=== PATIENT | male | born 1945 | race Caucasian/White ===

== ENCOUNTER 2017-06-06 15:13 | Emergency (ER) | payer OTHER, MEDICARE ==
[~2017-06-06] VITALS: Ht 172.7 cm; Wt 90.0 kg
[~2017-06-06 15:13] MED LIST: ALLO300T2 PO; ASPI-110 PO; BUPR150T12 PO; CHOL100025 CHEW; CLON.5 PO; DIGO0.25 PO; DILT120T PO; GLIP5TAB8 PO; LEXA10TA PO; LEXA20TA PO; LISI10TA PO; MAGN1TAB14 PO; NASA0.653; OMEP20TA PO; SIMV10TA PO; SYMB160A INH; TAMS5CAP PO; WARF4TAB51 PO; ZINC CHELATED PO; ZYRT10CA PO
[2017-06-06 15:15] VITALS: BP 173/83; PULSE 84; RESP 18; TEMP 99.1; O2SAT 96
--- NOTE | 2017-06-06 15:36 | PD ---
Physical Exam Time Seen by Provider: 15:35 Narrative 71 y/o male [facility]. He is having a "panic attack." -SI/HI Vital signs reviewed. Seen at triage desk. Awaiting bed placement. Data Data Last Documented VS Vital Signs Date Time Temp Pulse Resp B/P Pulse Ox O2 Delivery O2 Flow Rate FiO2 06/06/17 15:15 99.1 84 18 173/83 96 Room Air [facility] Medical Record Reviewed: Yes Supervised Visit with WIN: Damir Garduno Jun 06, 2017 15:36
[2017-06-06] MEDS ORDERED: SALI0.653 EACH NARE (17:40)
[2017-06-06] MEDS ORDERED: METF500T PO (17:40)
[2017-06-06] MEDS ORDERED: CETI10 PO (17:40)
[2017-06-06] MEDS ORDERED: QUET1TAB7 PO (17:40)
[2017-06-06] MEDS ORDERED: APIX5TAB PO (17:40)
[2017-06-06] MEDS ORDERED: CART120C PO (17:40)
[2017-06-06 17:42] VITALS: BP 167/90; PULSE 84; RESP 19; TEMP 98.1; O2SAT 95
[2017-06-06] MEDS ORDERED: HYDR-3133 PO (17:46)
--- NOTE | 2017-06-06 17:46 | PD ---
HPI Chief Complaint: Psychiatric Symptoms Time Seen by Provider: 17:25 Travel History International Travel<30 days: No Contact w/Intl Traveler<30days: No Traveled to known affect area: No History of Present Illness HPI 71-year-old male arrives to the ER 2 weeks after his Klonopin prescription was discontinued per a new [place] protocol. He reports some insomnia. He does not want to resume the Klonopin. He has no suicidal or homicidal ideation. He reports he can visit a psychiatric care [place] office tomorrow. He reports a history of PTSD more than 40 years old. No medical complaint otherwise. Location psychiatric. Timing constant. Severity mild to moderate. He has seen 3 psychiatrists in the last 6 months and his medications have been changed 3 times. PFSH Past Medical History Hx Anticoagulant Therapy: Yes Asthma: Yes Atrial Fibrillation: Yes Blood Disorders: No Anxiety: Yes Depression: Yes Heart Rhythm Problems: Yes Cancer: Yes (HX OF PROSTATE CANCER) Cardiac Catheterization: Yes Cardiovascular Problems: Yes High Cholesterol: Yes Chemotherapy: Yes Chest Pain: Yes Congestive Heart Failure: Yes COPD: Yes Coronary Artery Disease: Yes Diabetes: Yes Patient Takes Glucophage: Yes Diminished Hearing: No Endocrine: No GERD: Yes Genitourinary: Yes (HX OF KIDNEY DISEASE) Hypertension: Yes Immune Disorder: No Inguinal Hernia: Yes (REPAIR BILATERAL) Neurologic: Yes (neuropathy LEFT ARM IDIOPATHIC PER PT) Reproductive: No Respiratory: Yes Immunizations Current: Yes Myocardial Infarction: Yes Pneumonia: Yes ( X 1) Radiation Therapy: Yes (2004) Renal Failure: Yes (RENAL INSUFF) Sickle Cell Disease: No Sleep Apnea: Yes (USES A CPAP) Tetanus Vaccination: Unknown Past Surgical History Abdominal Surgery: Yes AICD: No Arteriovenous Shunt: No Cardiac Surgery: Yes Cholecystectomy: Yes Coronary Artery Bypass Graft: Yes (X 3) Coronary Stent: Yes ( X 5) Insulin Pump: No Joint Replacement: No Pacemaker: Yes Social History Alcohol Use: No Tobacco Use: No Substance Use: No Allergies-Medications (Allergen,Severity, Reaction): Coded Allergies: Prevacid (Verified Allergy, Mild, NAUSEA, 06/06/17) Prozac (Verified Allergy, Mild, 06/06/17) Reported Meds & Prescriptions Reported Meds & Active Scripts Active Lexapro (Escitalopram Oxalate) 20 Mg Tab 20 Mg PO DAILY Klonopin (Clonazepam) 0.5 Mg Tab 0.5 Mg PO BID Bupropion Sr 12 HR (Bupropion ER 12 HR (Smoking Deterrent)) 150 Mg Tab 150 Mg PO BID Take 1 tablet daily x 3 days then twice daily thereafter. Vitamin D3 (Cholecalciferol) 1,000 Unit Chew 1,000 Units CHEW DAILY Symbicort Inh (Budesonide/Formoterol Fumarate) 160-4.5 Mcg/Act Aero 2 Puff INH Q12HR Omeprazole 20 Mg Tab 20 Mg PO DAILY Magnesium 400 Mg Tab 400 Mg PO DAILY 30 Days Lisinopril-Hctz 10-12.5 Mg Tab 1 Tab PO DAILY Glipizide 5 Mg Tab 5 Mg PO 1/2 TAB DAILY Take 30 minutes before a meal Flomax (Tamsulosin HCl) 0.4 Mg Cap 0.4 Mg PO HS Diltiazem (Diltiazem HCl) 120 Mg Tab 120 Mg PO DAILY Digoxin 0.25 Mg Tab 0.25 Mg PO DAILY Aspirin 81 (Aspirin) 81 Mg Tabdr 81 Mg PO DAILY Allopurinol 300 Mg Tab 300 Mg PO DAILY Reported [Zinc Chelated ] 15 Mg PO DAILY@1600 Review of Systems Except as stated in HPI: all other systems reviewed are Neg Psychiatric: Positive: Anxiety, Depression, No: Suicidal Ideations, Substance Abuse, Homicidal Ideation Physical Exam Narrative GENERAL: 71 yo male, pleasant, [place] SKIN: Warm and dry. HEAD: Atraumatic. Normocephalic. EYES: Pupils equal and round. No scleral icterus. No injection or drainage. ENT: No nasal bleeding or discharge. Mucous membranes pink and moist. NECK: Trachea midline. No JVD. CARDIOVASCULAR: Regular rate and rhythm. RESPIRATORY: No accessory muscle use. Clear to auscultation. Breath sounds equal bilaterally. GASTROINTESTINAL: Abdomen soft, non-tender, nondistended. Hepatic and splenic margins not palpable. MUSCULOSKELETAL: Extremities without clubbing, cyanosis, or edema. No obvious deformities. NEUROLOGICAL: Awake and alert. No obvious cranial nerve deficits. Motor grossly within normal limits. Five out of 5 muscle strength in the arms and legs. Normal speech. PSYCHIATRIC: No HI/SI. No apparent response to internal stimuli. Data Data Last Documented VS Vital Signs Date Time Temp Pulse Resp B/P Pulse Ox O2 Delivery O2 Flow Rate FiO2 06/06/17 17:25 20 06/06/17 15:15 99.1 84 173/83 96 Room Air MDM Medical Decision Making Medical Screen Exam Complete: Yes Emergency Medical Condition: Yes Medical Record Reviewed: Yes Differential Diagnosis Benzodiazepine withdrawal, generalized anxiety disorder, insomnia, panic attacks , major depression, PTSD Narrative Course Pt has good follow up, [place] psych facility tomorrow. He is willing to try non-benzodiazepine anxiolytic. We'll defer initiation of an SSRI/SNRI etc to psychiatrist which pt can see tomorrow. Hydroxyzine script. Diagnosis Primary Impression: Anxiety Referrals: [facility] Additional Instructions: You have a choice when it comes to health care, and we are glad that you chose [facility]. Hopefully, we have met your expectations on today's visit. You are welcome to return to [facility] at any time, as we are committed to meeting the health care needs of our community. Med/Other Pt SpecificInfo: Prescription(s) given Scripts Hydroxyzine HCl 25 Mg Tab25 Mg PO TID PRN (ANXIETY) #20 TAB Ref 0 Prov:David Guzman MD 06/06/17 Disposition: 01 DISCHARGE HOME Condition: Stable David Guzman MD Jun 06, 2017 17:46
== END 2017-06-06 18:06 | disposition home or self-care (01) ==
LOC: NEPD 15:13
DX: F41.9 Anxiety disorder, unspecified (principal); G47.00 Insomnia, unspecified; I10 Essential (primary) hypertension; E11.9 Type 2 diabetes mellitus without complications; E78.00 Pure hypercholesterolemia, unspecified; N28.9 Disorder of kidney and ureter, unspecified; I25.2 Old myocardial infarction; Z79.84 Long term (current) use of oral hypoglycemic drugs; Z79.01 Long term (current) use of anticoagulants; Z87.09 Personal history of other diseases of the respiratory system; Z86.59 Personal history of other mental and behavioral disorders; Z86.79 Personal history of other diseases of the circulatory system; Z87.19 Personal history of other diseases of the digestive system; Z87.448 Personal history of other diseases of urinary system; Z86.69 Personal history of other diseases of the nervous system and sense organs
CPT/HCPCS: 99283

== ENCOUNTER 2018-01-30 23:06 | Inpatient (IN) | payer OTHER, MEDICARE ==
[~2018-01-30] VITALS: Ht 172.7 cm; Wt 90.9 kg
[~2018-01-30 23:06] MED LIST changes: +APIX5TAB PO; -ASPI-110 PO; +ASPI1TAB57 PO; +CART120C PO; +CETI10 PO; -CLON.5 PO; -DIGO0.25 PO; -DILT120T PO; -GLIP5TAB8 PO; +HYDR-3133 PO; -LEXA10TA PO; -LISI10TA PO; -MAGN1TAB14 PO; +MAGN400T3 PO; +METF500T PO; -NASA0.653; -OMEP20TA PO; +QUET1TAB7 PO; +SALI0.653 EACH NARE; -SIMV10TA PO; -TAMS5CAP PO; -WARF4TAB51 PO; -ZYRT10CA PO
[2018-01-30] MEDS ORDERED: SODIUM CHLOR 0.9% 1000 ML INJ 1,000 ML IV ONE (23:09)
--- NOTE | 2018-01-30 23:18 | PD ---
HPI Chief Complaint: Neuro symptoms Time Seen by Provider: 23:09 Travel History International Travel<30 days: No Contact w/Intl Traveler<30days: No Traveled to known affect area: No History of Present Illness HPI 72-year-old male was brought by EMS for neuro symptoms. Patient's states that patient was going to the sink and had a near syncopal episode. Patient's states that she helped him down to the floor. Patient had his eye open and was talking to her. Patient's reported no complete loss of consciousness. EMS was called. Patient became a phasic when EMS arrived. Patient also was noticed to have right-sided facial drooping and right-sided weakness when EMS arrived. Patient was brought in for evaluation. Patient has history of atrial fibrillation and on Eliquis. Patient has history hypertension , diabetes, hyperlipidemia. Patient denies any previous history of TIA or CVA. Patient states that he has been feeling dizzy and unsteady for the past 3-4 days. Patient states that he fell 3 days ago in the shower and again in the garage 2 days ago. Patient denies any injury from the fall. Patient take aspirin 81 mg daily including today. Patient stated he took his Eliquis today also. Patient also has history of prostate cancer. Patient has history of CAD status post CABG and stent placement. Patient has history of renal insufficiency. Patient had pacemaker placement. PFSH Past Medical History Hx Anticoagulant Therapy: Yes Asthma: Yes Atrial Fibrillation: Yes Blood Disorders: No Anxiety: Yes Depression: Yes Heart Rhythm Problems: Yes Cancer: Yes (HX OF PROSTATE CANCER) Cardiac Catheterization: Yes Cardiovascular Problems: Yes High Cholesterol: Yes Chemotherapy: Yes Chest Pain: Yes Congestive Heart Failure: Yes COPD: Yes Coronary Artery Disease: Yes Diabetes: Yes Diminished Hearing: No Endocrine: No GERD: Yes Genitourinary: Yes (HX OF KIDNEY DISEASE) Hypertension: Yes Immune Disorder: No Inguinal Hernia: Yes (REPAIR BILATERAL) Neurologic: Yes (neuropathy LEFT ARM IDIOPATHIC PER PT) Reproductive: No Respiratory: Yes Immunizations Current: Yes Myocardial Infarction: Yes Pneumonia: Yes ( X 1) Radiation Therapy: Yes (2004) Renal Failure: Yes (RENAL INSUFF) Sickle Cell Disease: No Sleep Apnea: Yes (USES A CPAP) Past Surgical History Abdominal Surgery: Yes AICD: No Arteriovenous Shunt: No Cardiac Surgery: Yes Cholecystectomy: Yes Coronary Artery Bypass Graft: Yes (X 3) Coronary Stent: Yes ( X 5) Insulin Pump: No Joint Replacement: No Pacemaker: Yes Social History Alcohol Use: No Tobacco Use: No Substance Use: No Allergies-Medications (Allergen,Severity, Reaction): Coded Allergies: fluoxetine (Unverified Allergy, Mild, 06/25/17) lansoprazole (Unverified Allergy, Mild, NAUSEA, 06/25/17) Reported Meds & Prescriptions Reported Meds & Active Scripts Active Hydroxyzine HCl 25 Mg Tab 25 Mg PO TID PRN Lexapro (Escitalopram Oxalate) 20 Mg Tab 20 Mg PO DAILY Bupropion Sr 12 HR (Bupropion ER 12 HR (Smoking Deterrent)) 150 Mg Tab 150 Mg PO BID Take 1 tablet daily x 3 days then twice daily thereafter. Vitamin D3 (Cholecalciferol) 1,000 Unit Chew 1,000 Units CHEW DAILY Symbicort Inh (Budesonide/Formoterol Fumarate) 160-4.5 Mcg/Act Aero 2 Puff INH Q12HR Magnesium 400 Mg Tab 400 Mg PO DAILY 30 Days Aspirin 81 (Aspirin) 81 Mg Tabdr 81 Mg PO DAILY Allopurinol 300 Mg Tab 300 Mg PO DAILY Reported Atorvastatin (Atorvastatin Calcium) 20 Mg Tab 20 Mg PO HS Clonazepam 0.5 Mg Tab 0.25 Mg PO HS Irbesartan 150 Mg Tab 150 Mg PO DAILY Chlorthalidone 25 Mg Tab 25 Mg PO DAILY Eliquis (Apixaban) 5 Mg Tab 5 Mg PO BID Quetiapine (Quetiapine Fumarate) 25 Mg Tab 25 Mg PO HS Metformin (Metformin HCl) 500 Mg Tab 1,500 Mg PO BIDPC With meals Saline Nasal Thompsons (Sodium Chloride) 0.65% Thompsons 2 Thompsons EACH NARE DIRECTED PRN Cartia Xt (Diltiazem ER 24 HR) 120 Mg Caper 240 Mg PO DAILY [Zinc Chelated ] 15 Mg PO DAILY@1600 Review of Systems General / Constitutional: No: Fever Eyes: No: Visual changes HENT: No: Headaches Cardiovascular: No: Chest Pain or Discomfort Respiratory: No: Shortness of Breath Gastrointestinal: No: Abdominal Pain Genitourinary: No: Dysuria Musculoskeletal: No: Pain Skin: No Rash Neurologic: Positive: Weakness, Slurred Speech Psychiatric: No: Depression Endocrine: No: Polydipsia Hematologic/Lymphatic: No: Easy Bruising Physical Exam Narrative GENERAL: Well-nourished, well-developed patient. SKIN: Focused skin assessment warm/dry. HEAD: Normocephalic. EYES: No scleral icterus. No injection or drainage. NECK: Supple, trachea midline. No JVD or lymphadenopathy. CARDIOVASCULAR: Regular rate and rhythm without murmurs, gallops, or rubs. RESPIRATORY: Breath sounds equal bilaterally. No accessory muscle use. GASTROINTESTINAL: Abdomen soft, non-tender, nondistended. MUSCULOSKELETAL: No cyanosis, or edema. BACK: Nontender without obvious deformity. No CVA tenderness. Neurologic exam: Patient open eyes on command. Upon arrival patient was aphasic however patient started talking a few minutes after arrival. Patient has some mild drooping on the right side of face. Patient has mild weakness on the right arm. Patient unable to lift bilateral lower extremity off the bed. Deep tendon reflexes +1 and equal. Negative Babinski. Visual field intact. Data Data Last Documented VS Vital Signs Date Time Temp Pulse Resp B/P (MAP) Pulse Ox O2 Delivery O2 Flow Rate FiO2 01/31/18 00:14 99 Nasal Cannula 2.00 Orders Orders Cath For Specimen (01/30/18 23:09) Neuro Checks Q2HX12,Q4H (01/30/18 23:09) Nursing Bedside Swallow Assess .ONCE (01/30/18 23:09) Activity Bed Rest (01/30/18 23:09) Diet Npo (01/31/18 Breakfast) Prothrombin Time / Inr (Pt) (01/30/18 23:09) Act Partial Throm Time (Ptt) (01/30/18 23:09) Complete Blood Count With Diff (01/30/18 23:09) Basic Metabolic Panel (Bmp) (01/30/18 23:09) Fibrinogen (01/30/18 23:09) Creatine Kinase (Cpk) (01/30/18 23:09) Troponin I (01/30/18 23:09) Ua Includes Microscopic (01/30/18 23:09) Type And Screen (01/30/18 23:09) Ct Brain W/O Iv Contrast(Rout) (01/30/18 ) Cta Brain W Iv Contrast W 3d (01/30/18 23:09) Cta Neck W Iv Contrast W 3d (01/30/18 23:09) Chest, Single Ap (01/30/18 ) Electrocardiogram (3/22/18 ) Consult Neurology (01/30/18 23:09) Sodium Chlor 0.9% 1000 Ml Inj (Ns 1000 M (01/30/18 23:09) Blood Glucose (01/30/18 23:09) Ecg Monitoring (01/30/18 23:09) Iv Access Insert/Monitor (01/30/18 23:09) NPO (01/30/18 23:09) Oximetry (01/30/18 23:09) Resp Oxygen Nc Stroke (01/30/18 ) Sodium Chlor 0.9% 250 Ml Inj (Ns 250 Ml (01/31/18 00:00) Sodium Chlor 0.9% 1000 Ml Inj (Ns 1000 M (01/31/18 00:00) [place] (01/30/18 23:52) Iohexol 350 Inj (Omnipaque 350 Inj) (01/30/18 23:45) (Hub Use Only)Inp Phy Cons/Ref (01/31/18 ) Mri Brain W/O Contrast (01/31/18 00:28) Mri C Spine W/O Contrast (01/31/18 00:28) Mri T Spine W/O Contrast (01/31/18 00:28) Mri L Spine W/O Contrast (01/31/18 00:28) Labs Laboratory Tests Test 01/31/18 00:03 White Blood Count 10.7 TH/MM3 Red Blood Count 5.13 MIL/MM3 Hemoglobin 14.5 GM/DL Hematocrit 42.8 % Mean Corpuscular Volume 83.6 FL Mean Corpuscular Hemoglobin 28.3 PG Mean Corpuscular Hemoglobin Concent 33.8 % Red Cell Distribution Width 13.1 % Platelet Count 358 TH/MM3 Mean Platelet Volume 8.1 FL Neutrophils (%) (Auto) 71.3 % Lymphocytes (%) (Auto) 14.4 % Monocytes (%) (Auto) 10.5 % Eosinophils (%) (Auto) 2.6 % Basophils (%) (Auto) 1.2 % Neutrophils # (Auto) 7.7 TH/MM3 Lymphocytes # (Auto) 1.5 TH/MM3 Monocytes # (Auto) 1.1 TH/MM3 Eosinophils # (Auto) 0.3 TH/MM3 Basophils # (Auto) 0.1 TH/MM3 CBC Comment DIFF FINAL Differential Comment MDM Medical Decision Making Medical Screen Exam Complete: Yes Emergency Medical Condition: Yes Interpretation(s) Last Impressions Neck CTA 01/30/18 2309 Signed Impressions: Service Date/Time: January 23:11 - CONCLUSION: 1. Moderate calcific plaquing in the left carotid bulb with approximately 50%% diameter stenosis. 2. Minimal calcific plaquing in the right carotid bulb with less than 20%% diameter stenosis. Nima Loomis MD Head CTA 01/30/18 2309 Signed Impressions: Service Date/Time: January 23:11 - CONCLUSION: Unremarkable exam. Nima Loomis MD Head CT 01/30/18 0000 Signed Impressions: Service Date/Time: , January 30, 2018 23:11 - CONCLUSION: 1. Mild to moderate atrophic change. 2. No acute hemorrhage or mass effect. Nima Loomis MD Chest X-Ray 01/30/18 0000 Signed Impressions: Service Date/Time: January 23:45 - CONCLUSION: 1. No acute cardiopulmonary disease. 2. Status post median sternotomy. Nima Loomis MD Differential Diagnosis Differential diagnosis including TIA, CVA. Narrative Course 72-year-old male with sudden onset of aphasia, right-sided facial drooping and right-sided weakness. Symptoms improving upon arrival. Patient has history of atrial fibrillation and on Eliquis. Patient is not a candidate for TPA. Normal saline solution 200 cc IV bolus. Normal saline solution 100 cc an hour. Head of bed flat. O2 2 L nasal cannula. I spoke with Dr. Naresh Ramirez, neurologist on-call. Unable to do MRI. Patient has pacemaker in place. Diagnosis Primary Impression: Acute CVA (cerebrovascular accident) Admitting Information Admitting Physician Requests: Admit Omari Adhikari MD Jan 30, 2018 23:18
[2018-01-30] MEDS ORDERED: IRBE150T15 PO (23:32)
[2018-01-30] MEDS ORDERED: CLON0.5T PO (23:32)
[2018-01-30] MEDS ORDERED: ATOR20TA15 PO (23:32)
[2018-01-30] MEDS ORDERED: CHLO25TA2 PO (23:32)
[2018-01-30] MEDS ORDERED: IOHEXOL 350 MG/ML 10 ML VIAL (for RAD DIAG) IVCONTRAST ONE (23:45)
--- NOTE | 2018-01-30 23:46 | RADRPT ---
EXAM DATE/TIME: 01/30/2018 23:11 [facility] COMPARISON: No previous studies available for comparison. INDICATIONS : Stroke alert. Right side weakness. RADIATION DOSE: 56.49 CTDIvol (mGy) This report was called by Dr. Loomis to Dr. Adhikari at 1140 hrs. MEDICAL HISTORY : Non-responsive. SURGICAL HISTORY : Non-responsive. ENCOUNTER: Initial ACUITY: 1 day PAIN SCALE: Non-responsive LOCATION: cranial TECHNIQUE: Multiple contiguous axial images were obtained of the head. Using automated exposure control and adj ustment of the mA and/or kV according to patient size, radiation dose was kept as low as reasonably a chievable to obtain optimal diagnostic quality images. DICOM format image data is available electro nically for review and comparison. FINDINGS: CEREBRUM: The ventricles are normal for age with mild to moderate atrophic change. No evidence of midline shift , mass lesion, hemorrhage or acute infarction. No extra-axial fluid collections are seen. POSTERIOR FOSSA: The cerebellum and brainstem are intact. The 4th ventricle is midline. The cerebellopontine angle i s unremarkable. EXTRACRANIAL: The visualized portion of the orbits is intact. SKULL: The calvaria is intact. No evidence of skull fracture. CONCLUSION: 1. Mild to moderate atrophic change. 2. No acute hemorrhage or mass effect. Nima Loomis MD on January 30, 2018 at 23:37 Board Certified Radiologist. This report was verified electronically.
--- NOTE | 2018-01-30 23:50 | RADRPT ---
EXAM DATE/TIME: 01/30/2018 23:11 [facility] COMPARISON: No previous studies available for comparison. INDICATIONS : Stroke alert. Right side weakness. Facial droop IV CONTRAST: 100 cc Omnipaque 350 (iohexol) IV ; Cumulative dose for multiple exams. RADIATION DOSE: 42.45 CTDIvol (mGy) MEDICAL HISTORY : Non-responsive. SURGICAL HISTORY : Non-responsive. ENCOUNTER: Initial ACUITY: 1 day PAIN SCALE: Non-responsive LOCATION: cranial TECHNIQUE: Volumetric scanning was performed using a multi-row detector CT scanner. The data was post processed with a variety of visualization algorithms including full volume maximum intensity projection, multi -planar sliding thin slab reformation, curved planar reformation, and surface rendering techniques. Using automated exposure control and adjustment of the mA and/or kV according to patient size, radiat ion dose was kept as low as reasonably achievable to obtain optimal diagnostic quality images. DICO M format image data is available electronically for review and comparison. FINDINGS: There is excellent visualization of the major intracranial arteries out to the second-order branch ve ssels. There is no evidence for aneurysm, vessel truncation or stenosis, and no evidence for vascula r malformation. Mild atherosclerotic changes are present. CONCLUSION: Unremarkable exam. Nima Loomis MD on January 30, 2018 at 23:45 Board Certified Radiologist. This report was verified electronically.
--- NOTE | 2018-01-30 23:57 | RADRPT ---
EXAM DATE/TIME: 01/30/2018 23:45 [facility] COMPARISON: No previous studies available for comparison. INDICATIONS : Stroke alert. Right-sided weakness and facial droop. MEDICAL HISTORY : Unobtainable SURGICAL HISTORY : CABG. Pacemaker. ENCOUNTER: Initial ACUITY: 1 day PAIN SCORE: Non-responsive. LOCATION: Bilateral chest FINDINGS: A single AP portable supine view of the chest was obtained and demonstrates that the patient is statu s post median sternotomy for coronary artery bypass grafting procedure. There is a left subclavian AV sequential transvenous pacer in place. The heart size is at the upper limits of normal with no confl uent infiltrates or perihilar edema. There is no effusion. The bony thorax remains intact. Patient is also status post cholecystectomy with surgical clips in the right upper abdomen. CONCLUSION: 1. No acute cardiopulmonary disease. 2. Status post median sternotomy. Nima Loomis MD on January 30, 2018 at 23:54 Board Certified Radiologist. This report was verified electronically.
[2018-01-31] VITALS (14 sets, daily range): BP systolic 129–145; BP diastolic 62–73; PULSE 63–115; RESP 16–18; TEMP 96.8–98.5; O2SAT 95–99
[2018-01-31] MEDS ORDERED: SODIUM CHLOR 0.9% 250 ML INJ 250 ML IV ONE
[2018-01-31] MEDS ORDERED: SODIUM CHLOR 0.9% 1000 ML INJ 1,000 ML IV SCH
--- NOTE | 2018-01-31 00:20 | RADRPT ---
EXAM DATE/TIME: 01/30/2018 23:11 [facility] COMPARISON: No previous studies available for comparison. INDICATIONS : Stroke alert. Right side weakness. IV CONTRAST: 100 cc Omnipaque 350 (iohexol) IV ; Cumulative dose for multiple exams. RADIATION DOSE: 42.45 CTDIvol (mGy) ; Combined studies MEDICAL HISTORY : Non-responsive. SURGICAL HISTORY : Non-responsive. ENCOUNTER: Initial ACUITY: 1 day PAIN SCALE: Non-responsive LOCATION: neck Elevated flow velocities and ICA/CCA ratios have been found to correlate with increased degrees of vessel stenosis, calculated as percentage of diameter relative to a normal segment of distal ICA/CCA. TECHNIQUE: Volumetric scanning was performed using a multirow detector CT scanner. The data was post processed with a variety of visualization algorithms including full-volume maximum intensity projection, multip lanar sliding thin-slab reformation, curved-planar reformation, and surface-rendering techniques. Us ing automated exposure control and adjustment of the mA and/or kV according to patient size, radiatio n dose was kept as low as reasonably achievable to obtain optimal diagnostic quality images. DICOM f ormat image data is available electronically for review and comparison. FINDINGS: AORTIC ARCH: There is a three-vessel origin of the great vessels from the aorta. No evidence of ostial narrowing. RIGHT CAROTID: The common carotid artery is intact. The carotid bulb has a normal configuration with minimal calcifi c plaquing and narrowing. The internal carotid artery lumen is smooth without stenosis. The external carotid artery is intact. LEFT CAROTID: The common carotid artery is intact. The carotid bulb has a normal configuration with moderate calci fic plaquing an approximate 50% diameter stenosis. The internal carotid artery lumen is smooth withou t stenosis. The external carotid artery is intact. VERTEBRALS: The vertebral arteries have a symmetric diameter. No stenotic lesions are seen. CONCLUSION: 1. Moderate calcific plaquing in the left carotid bulb with approximately 50% diameter stenosis. 2. Minimal calcific plaquing in the right carotid bulb with less than 20% diameter stenosis. Nima Loomis MD on January 31, 2018 at 0:13 Board Certified Radiologist. This report was verified electronically.
[2018-01-31 00:30] LABS: AUTOMATED NEUTROPHIL # 7.7 TH/MM3 (1.8-7.7); BASOPHIL # 0.1 TH/MM3 (0-0.2); BASOPHIL % 1.2 % (0.0-2.0); EOSINOPHIL # 0.3 TH/MM3 (0-0.4); EOSINOPHIL % 2.6 % (0.0-4.0); HEMATOCRIT 42.8 % (39.0-51.0); HEMOGLOBIN 14.5 GM/DL (13.0-17.0); LYMPH % 14.4 % (9.0-44.0); LYMPHOCYTE # 1.5 TH/MM3 (1.0-4.8); MEAN CELL VOLUME 83.6 FL (80.0-100.0); MEAN CORPUSCULAR HEMOGLOBIN 28.3 PG (27.0-34.0); MEAN CORPUSCULAR HGB CONC 33.8 % (32.0-36.0); MEAN PLATELET VOLUME 8.1 FL (7.0-11.0); MONO % 10.5 % (0.0-8.0); MONOCYTE # 1.1 TH/MM3 (0-0.9); NEUT % 71.3 % (16.0-70.0); PLATELET COUNT 358 TH/MM3 (150-450); RED BLOOD COUNT 5.13 MIL/MM3 (4.50-5.90); RED CELL DISTRIBUTION WIDTH 13.1 % (11.6-17.2); WHITE BLOOD COUNT 10.7 TH/MM3 (4.0-11.0)
[2018-01-31 00:45] LABS: BILIRUBIN, URINE NEG (NEG); BLOOD, URINE NEG (NEG); GLUCOSE,URINE NEG (NEG); KETONE, URINE NEG (NEG); NITRITE,URINE NEG (NEG); URINE COLOR YELLOW (YELLW/STRAW); URINE LEUKOCYTE ESTERASE NEG (NEG)
[2018-01-31] MEDS ORDERED: DEXTROSE 50% IN WATER 50 ML VIAL(D50) IV PUSH PRN (01:00)
[2018-01-31] MEDS ORDERED: SODIUM CHLORIDE 0.9% FLUSH 10 ML FLUSH IV FLUSH PRN (01:00)
[2018-01-31] MEDS ORDERED: GLUCAGON 1 MG/ML VIAL OTHER PRN (01:00)
[2018-01-31 01:06] LABS: RBC, URINE 0-2 /hpf (0-3); SQUAMOUS EPITHELIAL CELL URINE 0-5 /hpf (0-5); WBC, URINE 0-2 /hpf (0-5)
[2018-01-31 01:29] LABS: BICARBONATE 27.7 MEQ/L (21.0-32.0); BLOOD UREA NITROGEN 18 MG/DL (7-18); CALCIUM 8.3 MG/DL (8.5-10.1); CHLORIDE 83 MEQ/L (98-107); GLOMERULAR FILTRATION RATE 43 ML/MIN (>89); GLUCOSE,RANDOM 68 MG/DL (74-106); TROPONIN I LESS THAN 0.02 NG/ML (0.02-0.05)
[2018-01-31 01:32] LABS: SODIUM (NA) 122 MEQ/L (136-145)
[2018-01-31 05:13] LABS: BICARBONATE 27.9 MEQ/L (21.0-32.0); CALCIUM 8.2 MG/DL (8.5-10.1)
[2018-01-31 05:17] LABS: CREATININE 1.5 MG/DL (0.60-1.30)
[2018-01-31] MEDS: APIXABAN 5 MG TABLET PO SCH ×2 (09:00→21:34)
[2018-01-31] MEDS: SODIUM CHLORIDE 0.9% FLUSH 10 ML FLUSH IV FLUSH SCH ×2 (09:00→21:34)
--- NOTE | 2018-01-31 09:21 | HHI.HP ---
HPI Service [facility] Primary Care Physician [facility] Admission Diagnosis Acute CVA Diagnoses: Chief Complaint: fall, droop right side of face, speech difficulty, weakness on legs Travel History International Travel<30 Days: No Contact w/Intl Traveler <30 Da: No Traveled to Known Affected Are: No History of Present Illness 72-year-old male with PMH of Afib on eliquis, AICD , CAD with CABG and stents, DM2, HLD, depression, was brought by EMS for further evaluation. Patient's states that patient was going to the sink and had a near syncopal episode. Patient's stated that she helped him down to the floor. Patient had his eye open and was talking to her. Patient's reported no complete loss of consciousness. EMS was called. Patient became a phasic when EMS arrived. Patient also was noticed to have right-sided facial drooping and right -sided weakness when EMS arrived. Patient was brought in for evaluation. Patient has history of atrial fibrillation and on Eliquis. Patient has history hypertension, diabetes, hyperlipidemia. Patient denies any previous history of TIA or CVA. Patient states that he has been feeling dizzy and unsteady for the past 3-4 days. Patient states that he fell 3 days ago in the shower and again in the garage 2 days ago. Patient denies any injury from the fall. Patient take aspirin 81 mg daily including today. Patient stated he took his Eliquis today also. Patient also has history of prostate cancer. Patient has history of CAD status post CABG and stent placement. Patient has history of renal insufficiency. Patient had pacemaker placement. Review of Systems Except as stated in HPI: all other systems reviewed are Neg Past Family Social History Past Medical History Depression, prostate cancer, COPD, GERD, chronic renal insufficiency, diabetes mellitus CAD with CABG and stents Afib on eliquis Past Surgical History Bilateral inguinal hernia repair Cholecystectomy CAD with 5 stents Reported Medications Reported Meds & Active Scripts Active Hydroxyzine HCl 25 Mg Tab 25 Mg PO TID PRN Lexapro (Escitalopram Oxalate) 20 Mg Tab 20 Mg PO DAILY Bupropion Sr 12 HR (Bupropion ER 12 HR (Smoking Deterrent)) 150 Mg Tab 150 Mg PO BID Take 1 tablet daily x 3 days then twice daily thereafter. Vitamin D3 (Cholecalciferol) 1,000 Unit Chew 1,000 Units CHEW DAILY Symbicort Inh (Budesonide/Formoterol Fumarate) 160-4.5 Mcg/Act Aero 2 Puff INH Q12HR Magnesium 400 Mg Tab 400 Mg PO DAILY 30 Days Aspirin 81 (Aspirin) 81 Mg Tabdr 81 Mg PO DAILY Allopurinol 300 Mg Tab 300 Mg PO DAILY Reported Atorvastatin (Atorvastatin Calcium) 20 Mg Tab 20 Mg PO HS Clonazepam 0.5 Mg Tab 0.25 Mg PO HS Irbesartan 150 Mg Tab 150 Mg PO DAILY Chlorthalidone 25 Mg Tab 25 Mg PO DAILY Eliquis (Apixaban) 5 Mg Tab 5 Mg PO BID Quetiapine (Quetiapine Fumarate) 25 Mg Tab 25 Mg PO HS Metformin (Metformin HCl) 500 Mg Tab 1,500 Mg PO BIDPC With meals Saline Nasal [place] (Sodium Chloride) 0.65% [place] 2 [place] EACH NARE DIRECTED PRN Cartia Xt (Diltiazem ER 24 HR) 120 Mg Caper 240 Mg PO DAILY [Zinc Chelated ] 15 Mg PO DAILY@1600 Allergies: Coded Allergies: fluoxetine (Unverified Allergy, Mild, 06/25/17) lansoprazole (Unverified Allergy, Mild, NAUSEA, 06/25/17) MRI PRECAUTION (Verified Adverse Reaction, Severe, NON CONDITIONAL [facility] PACEMAKER KMD 01-31-18, 01/31/18) ASSURITY PM [address] [facility] Family History Brother had [place] at the age of 42 history of coronary artery disease Mom alive at 94 Father major stroke at 64 ya at that time Brother heart attack at 52 ya Social History Denies alcohol use, tobacco use or illicit drug use Physical Exam Vital Signs Vital Signs Date Time Temp Pulse Resp B/P (MAP) Pulse Ox O2 Delivery O2 Flow Rate FiO2 01/31/18 08:50 01/31/18 08:10 97 21 01/31/18 07:15 77 18 139/66 (90) 95 Room Air 01/31/18 07:15 95 Room Air 01/31/18 06:15 75 16 140/68 (92) 98 Nasal Cannula 2.00 01/31/18 04:21 77 16 133/65 (87) 98 Nasal Cannula 2.00 01/31/18 01:30 98 Nasal Cannula 2.00 01/31/18 01:22 77 16 145/62 (89) 98 Nasal Cannula 2.00 01/31/18 00:14 99 Nasal Cannula 2.00 01/30/18 23:48 99 Nasal Cannula 2.00 01/30/18 23:06 99 Nasal Cannula 2.00 Physical Exam GENERAL: This is a well-nourished, well-developed patient, in no apparent distress. SKIN: No rashes, ecchymoses or lesions. Cool and dry. HEAD: Atraumatic. Normocephalic. No temporal or scalp tenderness. EYES: Pupils equal round and reactive. Extraocular motions intact. No scleral icterus. No injection or drainage. ENT: Nose without bleeding, purulent drainage or septal hematoma. Throat without erythema, tonsillar hypertrophy or exudate. Uvula midline. Airway patent. NECK: Trachea midline. No JVD or lymphadenopathy. Supple, nontender, no meningeal signs. CARDIOVASCULAR: Regular rate and rhythm without murmurs, gallops, or rubs. RESPIRATORY: Clear to auscultation. Breath sounds equal bilaterally. No wheezes , rales, or rhonchi. GASTROINTESTINAL: Abdomen soft, non-tender, nondistended. No hepato-splenomegaly , or palpable masses. No guarding. MUSCULOSKELETAL: Extremities without clubbing, cyanosis, or edema. No joint tenderness, effusion, or edema noted. No calf tenderness. Negative Homans sign bilaterally. NEUROLOGICAL: Awake and alert. Cranial nerves II through XII intact. Motor and sensory grossly within normal limits. Five out of 5 muscle strength in all muscle groups. Normal speech. Laboratory Laboratory Tests Test 01/31/18 00:03 01/31/18 00:36 01/31/18 04:56 White Blood Count 10.7 Red Blood Count 5.13 Hemoglobin 14.5 Hematocrit 42.8 Mean Corpuscular Volume 83.6 Mean Corpuscular Hemoglobin 28.3 Mean Corpuscular Hemoglobin Concent 33.8 Red Cell Distribution Width 13.1 Platelet Count 358 Mean Platelet Volume 8.1 Neutrophils (%) (Auto) 71.3 Lymphocytes (%) (Auto) 14.4 Monocytes (%) (Auto) 10.5 Eosinophils (%) (Auto) 2.6 Basophils (%) (Auto) 1.2 Neutrophils # (Auto) 7.7 Lymphocytes # (Auto) 1.5 Monocytes # (Auto) 1.1 Eosinophils # (Auto) 0.3 Basophils # (Auto) 0.1 CBC Comment DIFF FINAL Differential Comment Prothrombin Time 10.0 Prothromb Time International Ratio 1.0 Activated Partial Thromboplast Time 31.3 Fibrinogen 383 Blood Urea Nitrogen 18 16 Creatinine 1.60 1.50 Random Glucose 68 99 Calcium Level 8.3 8.2 Sodium Level 122 126 Potassium Level 3.1 3.1 Chloride Level 83 87 Carbon Dioxide Level 27.7 27.9 Anion Gap 11 11 Estimat Glomerular Filtration Rate 43 46 Total Creatine Kinase 139 Troponin I LESS THAN 0.02 Urine Color YELLOW Urine Turbidity CLEAR Urine pH 6.0 Urine Specific [place] LESS/EQUAL 1.005 Urine Protein NEG Urine Glucose (UA) NEG Urine Ketones NEG Urine Occult Blood NEG Urine Nitrite NEG Urine Bilirubin NEG Urine Urobilinogen 0.2 Urine Leukocyte Esterase NEG Urine RBC 0-2 Urine WBC 0-2 Urine Squamous Epithelial Cells 0-5 Urine Bacteria NONE Result Diagram: 01/31/18 0003 01/31/18 0456 Imaging Last Impressions Neck CTA 01/30/182308 Signed Impressions: Service Date/Time: January 23:11 - CONCLUSION: 1. Moderate calcific plaquing in the left carotid bulb with approximately 50%% diameter stenosis. 2. Minimal calcific plaquing in the right carotid bulb with less than 20%% diameter stenosis. Nima Loomis MD Head CTA 01/30/182308 Signed Impressions: Service Date/Time: January 23:11 - CONCLUSION: Unremarkable exam. Nima Loomis MD Head CT 01/30/18 0000 Signed Impressions: Service Date/Time: January 23:11 - CONCLUSION: 1. Mild to moderate atrophic change. 2. No acute hemorrhage or mass effect. Nima Loomis MD Chest X-Ray 01/30/18 0000 Signed Impressions: Service Date/Time: January 23:45 - CONCLUSION: 1. No acute cardiopulmonary disease. 2. Status post median sternotomy. MD Goldy Zimmer VTE Risk Assessment Goldy VTE Risk Assessment: Mod/High Risk (score >= 2) Caprini Risk Assessment Model Point Value = 1 Point Value = 2 Point Value = 3 Point Value = 5 Age 41-60 Minor surgery BMI > 25 kg/m2 Swollen legs Varicose veins or History of unexplained or recurrent spontaneous Oral contraceptives or hormone replacement Sepsis (< 1 month) Serious lung disease, including pneumonia (< 1 month) Abnormal pulmonary function Acute myocardial infarction Congestive heart failure (< 1 month) History of inflammatory bowel disease Medical patient at bed rest Age 61-74 Arthroscopic surgery Major open surgery (> 45 min) Laparoscopic surgery (> 45 min) Malignancy Confined to bed (> 72 hours) Immobilizing plaster cast Central venous access Age >= 75 History of VTE Family history of VTE Factor V Leiden Prothrombin [id number] Lupus anticoagulant Anticardiolipin antibodies Elevated serum homocysteine Heparin-induced thrombocytopenia Other congenital or acquired thrombophilia Stroke (< 1 month) Elective arthroplasty Hip, pelvis, or leg fracture Acute spinal cord injury (< 1 month) Prophylaxis Regimen Total Risk Factor Score Risk Level Prophylaxis Regimen 0-1 Low Early ambulation 2 Moderate Order ONE of the following: *Sequential Compression Device (SCD) *Heparin 5000 units SQ BID 3-4 Higher Order ONE of the following medications: *Heparin 5000 units SQ TID *Enoxaparin/Lovenox 40 mg SQ daily (WT < 150 kg, CrCl > 30 mL/min) *Enoxaparin/Lovenox 30 mg SQ daily (WT < 150 kg, CrCl > 10-29 mL/min) *Enoxaparin/Lovenox 30 mg SQ BID (WT < 150 kg, CrCl > 30 mL/min) AND/OR *Sequential Compression Device (SCD) 5 or more Highest Order ONE of the following medications: *Heparin 5000 units SQ TID (Preferred with Epidurals) *Enoxaparin/Lovenox 40 mg SQ daily (WT < 150 kg, CrCl > 30 mL/min) *Enoxaparin/Lovenox 30 mg SQ daily (WT < 150 kg, CrCl > 10-29 mL/min) *Enoxaparin/Lovenox 30 mg SQ BID (WT < 150 kg, CrCl > 30 mL/min) AND *Sequential Compression Device (SCD) Assessment and Plan Assessment and Plan 72-year-old male with sudden onset of aphasia, right-sided facial drooping and right-sided weakness. Symptoms improving upon arrival in the ED. Patient has history of atrial fibrillation and on Eliquis. Patient is not a candidate for TPA. Acute CVA (cerebrovascular accident) Hyponatremia with Na of 122 on admission, improving with NS. Monitor Na level for overcorrection. Patient says she has been recently started on chlorthalidone 9 this might cause hyponatremia ) will hold Hypokalemia replaced monitor and replace as need H/o Afib on eliquis, AICD , CAD with CABG and stents, DM2, HLD, depression Normal saline solution 100 cc an hour. Head of bed flat per protocol Keep O2 sat > 94%, give O2 2 L nasal cannula. Neurology consulted Dr. Naresh garner pt. Unable to do MRI. Patient has pacemaker in place. Monitor on tele Allow permissive hypertension Monitor VS Neurochecks PT/OT/ST Restart home meds as appropriate Discussed Condition With pt, nurse, family at bedside Physician Certification 2 Midnight Certification Type: Admission for Inpatient Services Order for Inpatient Services The services are ordered in accordance with Medicare regulations or non- Medicare payer requirements, as applicable. In the case of services not specified as inpatient-only, they are appropriately provided as inpatient services in accordance with the 2-midnight benchmark. Estimated LOS (days): 3 days is the estimated time the patient will need to remain in the hospital, assuming treatment plan goals are met and no additional complications. Post-Hospital Plan: Daphney Guevara MD Jan 31, 2018 09:21
[2018-01-31] MEDS: MAGNESIUM OXIDE 400 MG TAB PO SCH (10:00)
[2018-01-31] MEDS ORDERED: MAGNESIUM SULFATE 1 GM PREMIX 100 ML IV ONE (10:00)
[2018-01-31] MEDS: NS + KCL 20 MEQ INJ 1,000 ML IV SCH ×2 (10:00→21:34)
--- NOTE | 2018-01-31 10:00 | MB ---
cc: Ajay Villafana MD DATE: 01/31/2018 HISTORY OF PRESENT ILLNESS: He is a 72-year-old male seen in neurological consultation in regards to transient neurologic symptoms. The patient came in apparently because of a near-syncopal episode last evening. He had a somewhat similar episode earlier in the week when he fell in the garage and also might have fallen in the shower. He was observed to have some droopiness of the right side of the face yesterday and may have had some difficulty with his speech and language. Reportedly, the patient has atrial fibrillation, on Eliquis. Interestingly, the patient described to me that he has been taking Plavix and aspirin through Dr. Epps. CT angio of the neck showed left internal carotid artery stenosis of 50%, minimal disease on the right. The CTA of the head was unremarkable as well as the CT brain. The patient has a history of multiple medical problems including diabetes, hypertension, prostate cancer, and hyperlipidemia. He also admits a lot of depression. He takes quetiapine. He is on atorvastatin. The Eliquis dose is 5 mg twice a day. There is no history of stroke, TIA or seizures. The EKG shows sinus rhythm. NEUROLOGIC EXAMINATION: The neurological exam was fairly benign at bedside. He was alert and oriented. Ocular movements and visual izaguirre full. Pupils equal and reactive. No facial weakness. He has good strength and [id number] testing was normal. Reflexes were diminished but present throughout, plantar response is flexor. ASSESSMENT: Syncope versus transient ischemic attack. History of atrial fibrillation, on Eliquis. Unclear if he is taking, at the same time, aspirin and Plavix. History of depression. Cerebrovascular studies as discussed above, shows a left internal carotid stenosis of 50%. We will also request an EEG and follow the neurological course. Check a lipid profile. His sodium was 122 and he apparently recently was added blood pressure/diuretic medication. Therefore, his hyponatremia might be the main diagnostic consideration here. MRI of the brain will be requested as well. Thank you for asking us to assist in his care. Ajay Villafana MD OFC/DL , 09:28 AM , 09:58 AM
[2018-01-31] MEDS ORDERED: POTASSIUM CHLORIDE 10 MEQ CONTROLLED RELEASE TAB PO ONE (12:00)
[2018-01-31 13:11] LABS: BICARBONATE 24.3 MEQ/L (21.0-32.0); CALCIUM 8.4 MG/DL (8.5-10.1); CREATININE 1.4 MG/DL (0.60-1.30)
[2018-01-31 18:06] LABS: BICARBONATE 28.2 MEQ/L (21.0-32.0); CALCIUM 8.6 MG/DL (8.5-10.1); CREATININE 1.4 MG/DL (0.60-1.30)
--- NOTE | 2018-01-31 18:31 | MG ---
cc: Ajay Villafana MD, Olimpio F MD An EEG was obtained on this 72-year-old patient with a history of near syncope. The patient is described as awake and asleep. The EEG shows low amplitude beta activity diffusely. There are some probable alpha rhythms and associated with this low amplitude EEG pattern. No lateralizing features present. Photic stimulation showed no change. INTERPRETATION: Probably normal low amplitude background EEG. No epileptiform features present. Ajay Chen. MD [facility] OFC/SA/ , 05:49 PM , 06:13 PM
--- NOTE | 2018-01-31 19:29 | EKG ---
Date Performed: 01/31/2018 Time Performed: 00:05:05 PTAGE: 72 years EKG: Sinus rhythm WITH FIRST DEGREE AV BLOCK MARKED LEFT AXIS DEVIATION INCOMPLETE RIGHT BUNDLE BRANCH BLOCK SEPTAL MY OCARDIAL INFARCTION POSSIBLE LATERAL MYOCARDIAL INFARCTION CONSIDER ANTEROSEPTAL CO, AGE INDETERMINAT E PROLONGED CORRECTED QTC ABNORMAL ECG PREVIOUS TRACING : 06/16/2009 02.04 DOCTOR: Eric Stevenson Interpretating Date/Time 01/31/2018 19:29:00
[2018-01-31 19:39] LABS: HEMOGLOBIN A1C 6.4 % (4.3-6.0)
[2018-01-31] MEDS ORDERED: ATORVASTATIN 20 MG TAB PO SCH (21:00)
[2018-01-31 21:19] LABS: CHOLESTEROL/ HDL RATIO 2.47 RATIO; HDL CHOLESTEROL 45.7 MG/DL (40.0-60.0)
[2018-01-31 22:32] LABS: CALCIUM 8.2 MG/DL (8.5-10.1)
[2018-01-31 22:33] LABS: BICARBONATE 28.4 MEQ/L (21.0-32.0)
[2018-01-31 22:36] LABS: CREATININE 1.4 MG/DL (0.60-1.30)
[2018-02-01 01:02] VITALS: BP 135/62; PULSE 89; RESP 18; TEMP 97.9; O2SAT 97
[2018-02-01 04:12] VITALS: BP 135/68; PULSE 81; RESP 16; TEMP 98; O2SAT 98
[2018-02-01] MEDS: NS + KCL 20 MEQ INJ 1,000 ML IV SCH (06:49)
--- NOTE | 2018-02-01 07:55 | HHI.PR ---
Subjective Remarks Na improved at 132. Says no chest pain overnight. Patient says he feels much better. says he is back at his baseline and would like to go home. No new motor or sensory deficit. No n/v/d/c. No abd pain , eating well. No muscle weakness. Objective Vitals Vital Signs Date Time Temp Pulse Resp B/P (MAP) Pulse Ox O2 Delivery O2 Flow Rate FiO2 02/01/18 04:12 98.0 81 16 135/68 (90) 98 02/01/18 01:02 97.9 89 18 135/62 (86) 97 01/31/18 21:54 97.2 79 16 142/63 (89) 96 01/31/18 21:00 95 21 01/31/18 20:05 76 01/31/18 16:00 96.9 63 16 141/71 (94) 96 01/31/18 15:00 115 01/31/18 12:00 98.5 72 16 136/73 (94) 96 01/31/18 09:51 96.8 69 18 129/69 (89) 96 01/31/18 08:50 01/31/18 08:10 97 21 I/O 01/31/18 01/31/18 01/31/18 02/01/18 02/01/18 02/01/18 07:00 15:00 23:00 07:00 15:00 23:00 Intake Total 250 ml 240 ml 884 ml 914 ml Output Total 500 ml 300 ml 1350 ml Balance -250 ml -60 ml 884 ml -436 ml Intake Oral 240 ml IV Total 250 ml 884 ml 914 ml Output Urine Total 500 ml 300 ml 1350 ml # Bowel Movements 0 Result Diagram: 01/31/18 0003 01/31/182212 Imaging Last Impressions Neck CTA 01/30/182308 Signed Impressions: Service Date/Time: January 23:11 - CONCLUSION: 1. Moderate calcific plaquing in the left carotid bulb with approximately 50%% diameter stenosis. 2. Minimal calcific plaquing in the right carotid bulb with less than 20%% diameter stenosis. Nima Loomis MD Head CTA 01/30/182308 Signed Impressions: Service Date/Time: January 23:11 - CONCLUSION: Unremarkable exam. Nima Loomis MD Head CT 01/30/18 0000 Signed Impressions: Service Date/Time: January 23:11 - CONCLUSION: 1. Mild to moderate atrophic change. 2. No acute hemorrhage or mass effect. Nima Loomis MD Chest X-Ray 01/30/18 0000 Signed Impressions: Service Date/Time: January 23:45 - CONCLUSION: 1. No acute cardiopulmonary disease. 2. Status post median sternotomy. Nima Loomis MD Objective Remarks GENERAL: This is a well-nourished, well-developed patient, in no apparent distress. CARDIOVASCULAR: Regular rate and rhythm without murmurs, gallops, or rubs. RESPIRATORY: Clear to auscultation. Breath sounds equal bilaterally. No wheezes , rales, or rhonchi. GASTROINTESTINAL: Abdomen soft, non-tender, nondistended. No hepato-splenomegaly , or palpable masses. No guarding. MUSCULOSKELETAL: Extremities without clubbing, cyanosis, or edema. No joint tenderness, effusion, or edema noted. No calf tenderness. Negative Homans sign bilaterally. NEUROLOGICAL: Awake and alert. Cranial nerves II through XII intact. Motor and sensory grossly within normal limits. Five out of 5 muscle strength in all muscle groups. Normal speech. A/P Assessment and Plan 72-year-old male with sudden onset of aphasia, right-sided facial drooping and right-sided weakness. Symptoms improving upon arrival in the ED. Patient has history of atrial fibrillation and on Eliquis. Patient is not a candidate for TPA. Acute CVA (cerebrovascular accident) With chest pain on admission. Trops are neg. EKG no change from baseline. Lexiscan is negative. Hyponatremia with Na of 122 on admission, improving with NS. Monitor Na level for overcorrection. Patient says she has been recently started on chlorthalidone this might cause hyponatremia, will hold ad DC Hypokalemia replaced monitor and replace as need H/o Afib on eliquis, AICD , CAD with CABG and stents, DM2, HLD, depression Normal saline solution 100 cc an hour. Head of bed flat per protocol Keep O2 sat > 94%, give O2 2 L nasal cannula. Neurology consulted Dr. Naresh Ramirez will eval pt. Unable to do MRI. Patient has pacemaker in place. Monitor on tele Keep normotensive/normoglycemic. Monitor VS Neurochecks PT/OT/ST Restart home meds as appropriate Discussed Condition With pt, nurse DC when improved and cleared by neurology. Discharge Planning DC home in stable condition to follow up as outpatient with PCP and consultants Medications per medication reconciliation's. Discontinue chlorthalidone Activity ad loyda. as tolerated Diet healthy heart diet Daphney Dailey MD Feb 01, 2018 07:55
[2018-02-01 08:00] VITALS: BP_SYST 135; BP_SYST 151; BP_DIAS 83; BP_DIAS 84; PULSE 75; PULSE 79; PULSE 85; RESP 20; TEMP 96.3; TEMP 97.1; O2SAT 97; O2SAT 98
[2018-02-01] MEDS: MAGNESIUM OXIDE 400 MG TAB PO SCH (08:39)
[2018-02-01] MEDS: SODIUM CHLORIDE 0.9% FLUSH 10 ML FLUSH IV FLUSH SCH (08:39)
[2018-02-01] MEDS: APIXABAN 5 MG TABLET PO SCH (08:39)
[2018-02-01 08:41] LABS: AUTOMATED NEUTROPHIL # 4.8 TH/MM3 (1.8-7.7); BASOPHIL # 0.1 TH/MM3 (0-0.2); BASOPHIL % 0.8 % (0.0-2.0); EOSINOPHIL # 0.2 TH/MM3 (0-0.4); EOSINOPHIL % 2.5 % (0.0-4.0); HEMATOCRIT 39.9 % (39.0-51.0); HEMOGLOBIN 13.1 GM/DL (13.0-17.0); LYMPH % 15.5 % (9.0-44.0); LYMPHOCYTE # 1.1 TH/MM3 (1.0-4.8); MEAN CELL VOLUME 85.6 FL (80.0-100.0); MEAN CORPUSCULAR HEMOGLOBIN 28.2 PG (27.0-34.0); MEAN CORPUSCULAR HGB CONC 32.9 % (32.0-36.0); MEAN PLATELET VOLUME 8.3 FL (7.0-11.0); MONO % 10.7 % (0.0-8.0); MONOCYTE # 0.7 TH/MM3 (0-0.9); NEUT % 70.5 % (16.0-70.0); PLATELET COUNT 347 TH/MM3 (150-450); RED BLOOD COUNT 4.67 MIL/MM3 (4.50-5.90); RED CELL DISTRIBUTION WIDTH 13.4 % (11.6-17.2); WHITE BLOOD COUNT 6.9 TH/MM3 (4.0-11.0)
[2018-02-01 08:49] LABS: CALCIUM 8.2 MG/DL (8.5-10.1)
[2018-02-01 08:50] LABS: BICARBONATE 29.7 MEQ/L (21.0-32.0)
[2018-02-01 08:53] LABS: CREATININE 1.3 MG/DL (0.60-1.30)
[2018-02-01] MEDS ORDERED: REGADENOSON INJ 0.4 MG/5 ML SYR IV ONE (10:08)
[2018-02-01] MEDS ORDERED: hydrOXYzine HCL 25 MG TAB PO PRN (11:30)
[2018-02-01] MEDS ORDERED: SODIUM CHLORIDE 0.65% NASAL SPRAY 45 ML BTL EACH NARE PRN (11:30)
--- NOTE | 2018-02-01 11:32 | HHI.DCPOC ---
Discharge Care Plan Goals to Promote Your Health * To prevent worsening of your condition and complications * To maintain your health at the optimal level Directions to Meet Your Goals Take your medications as prescribed Follow your dietary instruction Follow activity as directed Keep your appointments as scheduled Take your immunizations and boosters as scheduled If your symptoms worsen call your PCP, if no PCP go to Urgent Care Center or Emergency Room Smoking is Dangerous to Your Health. Avoid second hand smoke Call the 24-hour hour crisis hotline for domestic abuse at Daphney Dailey MD Feb 01, 2018 11:32
[2018-02-01 11:43] LABS: CHOLESTEROL/ HDL RATIO 2.61 RATIO; HDL CHOLESTEROL 44.4 MG/DL (40.0-60.0)
[2018-02-01 12:00] VITALS: BP 125/79; PULSE 93; RESP 16; TEMP 96.4; O2SAT 96
[2018-02-01] MEDS ORDERED: LOSARTAN 50 MG TAB PO SCH (12:00)
[2018-02-01] MEDS ORDERED: ESCITALOPRAM OXALATE 20 MG TAB PO SCH (12:00)
[2018-02-01] MEDS ORDERED: ALLOPURINOL 300 MG TAB PO SCH (12:00)
[2018-02-01] MEDS ORDERED: BUDESONIDE-FORMOTEROL 160/4.5 MCG INHALER INH SCH (12:00)
[2018-02-01] MEDS ORDERED: DILTIAZEM-CD 120 MG CAP ER PO SCH (12:00)
[2018-02-01] MEDS ORDERED: buPROPion HCL 150 MG SUSTAINED RELEASE TAB PO SCH (12:00)
--- NOTE | 2018-02-01 12:06 | RADRPT ---
EXAM DATE/TIME: 02/01/2018 09:25 [facility] COMPARISON: No previous studies available for comparison. INDICATIONS : Syncope. Atrial fibrillation. Coronary artery disease. DOSE: 26.7 mCi Tc99m Myoview at stress. 8.7 mCi Tc99m Myoview at rest. 0.4 mg Lexiscan STRESS SYMPTOMS: Shortness of breath and flush. EJECTION FRACTION: 57% MEDICAL HISTORY : Hypertension. Chronic obstructive pulmonary disease. Gastroesophageal reflux disease. Diabetes. SURGICAL HISTORY : Cholecystectomy. CABG Pacemaker. Hernia repair. ENCOUNTER: Initial ACUITY: 1 day PAIN SCALE: 0/10 LOCATION: chest TECHNIQUE: The patient underwent pharmacologic stress with infusion of prescribed dose. Continuous ECG tracing was monitored during stress. Gated SPECT imaging was performed after stress and conventional SPECT i maging was performed at rest. The examination was performed on a SPECT/CT scanner, both attenuation and non-corrected datasets were reviewed. FINDINGS: The gated cineloop images demonstrate no focal wall motion abnormality. The left ventricular ejection fraction is calculated at 57%. The cardiac SPECT stress and rest images demonstrate fixed defect involving the lateral wall suggesti ve of infarct in the LCx distribution. No reversible defect is noted to suggest ischemia. CONCLUSION: Fixed defect involving the lateral wall suggesting LCx distribution infarct. No reversible defect to suggest ischemia. No focal wall motion abnormality. RISK CATEGORY: Low risk(less than 1% annual mortality rate). Rg Toussaint MD on February 01, 2018 at 12:00 Board Certified Radiologist. This report was verified electronically.
[2018-02-01 12:16] VITALS: O2SAT 97
[2018-02-01] MEDS ORDERED: DEXTROSE 50% IN WATER 50 ML VIAL(D50) IV PUSH PRN (12:45)
[2018-02-01] MEDS ORDERED: GLUCAGON 1 MG/ML VIAL OTHER PRN (12:45)
[2018-02-01] MEDS ORDERED: METF500T PO (12:46)
[2018-02-01] MEDS ORDERED: ZINC SULFATE 220 MG CAP PO SCH (16:00)
[2018-02-01] MEDS ORDERED: INSULIN ASPART SUPPLEMENTAL SCALE SQ SCH (17:00)
[2018-02-01] MEDS ORDERED: metFORMIN HCL 500 MG TAB PO SCH (18:00)
[2018-02-01] MEDS ORDERED: clonazePAM 0.5 MG TAB PO SCH (21:00)
[2018-02-01] MEDS ORDERED: QUEtiapine FUMARATE 25 MG TAB PO SCH (21:00)
[2018-02-02] MEDS ORDERED: MAGNESIUM OXIDE 400 MG TAB PO SCH (09:00)
[2018-02-02] MEDS ORDERED: ASPIRIN EC 81 MG TABEC PO SCH (09:00)
== END 2018-02-01 16:12 | disposition home or self-care (01) | DRG 69 ==
LOC: PHED 23:06 → PHEDA 01-31 00:59 → OBSVTOIN 01-31 02:27 → PHEDH 01-31 05:07 → PH3A 01-31 08:48
PROVIDERS: ADMIT Hospitalist; ATTEND Hospitalist
DX: G45.9 Transient cerebral ischemic attack, unspecified (principal); I50.9 Heart failure, unspecified; I13.0 Hypertensive heart and chronic kidney disease with heart failure and stage 1 through stage 4 chronic kidney disease, or unspecified chronic kidney disease; E11.59 Type 2 diabetes mellitus with other circulatory complications; I48.91 Unspecified atrial fibrillation; E87.1 Hypo-osmolality and hyponatremia; R47.01 Aphasia; F32.9 Major depressive disorder, single episode, unspecified; I65.22 Occlusion and stenosis of left carotid artery; J44.9 Chronic obstructive pulmonary disease, unspecified; R29.810 Facial weakness; N18.9 Chronic kidney disease, unspecified; E78.5 Hyperlipidemia, unspecified; I25.10 Atherosclerotic heart disease of native coronary artery without angina pectoris; R55 Syncope and collapse; E87.6 Hypokalemia; E78.00 Pure hypercholesterolemia, unspecified; K21.9 Gastro-esophageal reflux disease without esophagitis; I25.2 Old myocardial infarction; M62.81 Muscle weakness (generalized); G47.30 Sleep apnea, unspecified; R07.9 Chest pain, unspecified; F41.9 Anxiety disorder, unspecified; Z79.01 Long term (current) use of anticoagulants; Z79.84 Long term (current) use of oral hypoglycemic drugs; Z82.49 Family history of ischemic heart disease and other diseases of the circulatory system; Z85.46 Personal history of malignant neoplasm of prostate; Z92.21 Personal history of antineoplastic chemotherapy; Z95.1 Presence of aortocoronary bypass graft; Z95.5 Presence of coronary angioplasty implant and graft; Z95.0 Presence of cardiac pacemaker
CPT/HCPCS: 70450; 70496; 70498; 71045; 78452; 80048; 80061; 81001; 82550; 82948; 83036; 84484; 85025; 85384; 85610; 85730; 86850; 86900; 86901; 93005; 93017; 95819; A9502; J2785; J3475; J3480; J7030; J7050; Q9967